=== PATIENT | female | born 1950 | race Caucasian/White ===

== ENCOUNTER 2017-02-07 15:48 | Outpatient (CLI) | payer MEDICARE ==
[2015-04-21 19:13] VITALS: BP 118/46
--- NOTE | 2017-02-07 17:29 | Diagnostic Imaging Report ---
[facility] [address] [facility].[address] [address] Report Submission Date: Feb 07, 2017 4:19:44 PM CDT Patient Study Name: JESUS ALONSO Date: Feb 07, 2017 3:59:07 PM CDT Modality Type: CR Gender: F Description: UPPER EXTREMITY : 48 Institution: [facility] Physician: SANTOS CAIN - ALEXANDER Right index finger 3 views Clinical history: Fingernail abnormalities Very mild osteoarthrosis of the proximal and distal interphalangeal joint without visible fracture, dislocation or other appreciable of abnormalities. No soft tissue calcifications . Impression: Osteoarthrosis Electronically signed on Feb 07, 2017 4:19:44 PM CDT by: Calos KRUGER
== END 2017-02-07 15:50 ==
LOC: RAD 15:48
PROVIDERS: ATTEND Family Medicine
DX: L60.9 Nail disorder, unspecified (principal)
CPT/HCPCS: 73140

== ENCOUNTER 2017-02-17 12:02 | Outpatient (CLI) | payer MEDICARE ==
[2015-04-21 19:13] VITALS: BP 118/46
== END 2017-02-17 12:03 ==
LOC: LABRHC 12:02
PROVIDERS: ATTEND Physician Assistant
DX: R30.0 Dysuria (principal)
CPT/HCPCS: 87086; 87186

== ENCOUNTER 2017-04-06 10:35 | Outpatient (CLI) | payer MEDICARE ==
[2015-04-21 19:13] VITALS: BP 118/46
== END 2017-04-06 10:36 ==
LOC: LAB 10:35
PROVIDERS: ATTEND Family Medicine
DX: R53.83 Other fatigue (principal); E55.9 Vitamin D deficiency, unspecified
CPT/HCPCS: 36415; 82306; 84439; 84443; 84481

== ENCOUNTER 2017-06-21 13:27 | Outpatient (CLI) | payer MEDICARE ==
[2015-04-21 19:13] VITALS: BP 118/46
== END 2017-06-21 13:30 ==
LOC: LABRHC 13:27
PROVIDERS: ATTEND Physician Assistant
DX: R10.30 Lower abdominal pain, unspecified (principal)
CPT/HCPCS: 87086; 87186

== ENCOUNTER 2017-07-19 09:57 | Outpatient (CLI) | payer MEDICARE ==
[2015-04-21 19:13] VITALS: BP 118/46
[2017-07-19] MEDS ORDERED: ALBUTEROL SULFATE 2.5 MG/3 ML AMPUL.NEB NEB ONE (10:21)
[2017-07-19 10:35] LABS: ABG BASE EXCESS -0.4 (-2 - +2); ABG PH 7.38 (7.35-7.45)
[2017-07-19 10:52] LABS: BASOPHILS % 0.9 (0.0-1.5); EOSINOPHILS % 3.9 % (0.0-6.8); MEAN CORPUSCULAR HEMOGLOBIN 31.1 pg (28.0-34.0); MONOCYTES % 6.5 % (0.0-11.0)
[2017-07-19 11:28] LABS: eGFR (African) > 60; eGFR (Non-African) > 60
--- NOTE | 2017-07-19 13:37 | Diagnostic Imaging Report ---
SANTOS CAIN [facility] [address] [facility] [address], [place]. [address] Report Submission Date: Jul 19, 2017 1:17:21 PM CDT Patient Study Name: JESUS ALONSO Date: Jul 19, 2017 10:45:50 AM CDT Modality Type: CR Gender: F Description: CHEST : 48 Institution: [facility] Physician: SANTOS CAIN Examination: PA and lateral chest. History: Evaluate lung villarreal. Findings: PA lateral chest demonstrate a normal cardiac and mediastinal silhouette. Vascular calcifications involving the aortic arch. No focal infiltrate. No effusion. No blunting of the costophrenic margins. Left upper lung/hilar granuloma. Osseous structures are appropriate for age. Impression: No acute pulmonary process. Electronically signed on Jul 19, 2017 1:17:21 PM CDT by: Adrian KRUGER
== END 2017-07-19 10:00 ==
LOC: RT 09:57
PROVIDERS: ATTEND Family Medicine
DX: R06.02 Shortness of breath (principal)
CPT/HCPCS: 36415; 36600; 71020; 80053; 82803; 85025; 94060

== ENCOUNTER 2017-07-22 12:36 | Outpatient (CLI) | payer MEDICARE ==
[2015-04-21 19:13] VITALS: BP 118/46
--- NOTE | 2017-07-28 10:06 | CONSULTATION REPORT ---
REFERRING AND PRIMARY CARE PHYSICIAN: Dr. Eri Quintana CONSULTING PHYSICIAN: Desiree Woody MD CHIEF COMPLAINT: "I have had a cough for years and some shortness of breath." SIGNIFICANT PROBLEM LIST: 1. Hypertension. 2. Hyperlipidemia. 3. Aortic stenosis. 4. B12 deficiency. 5. Colon polyp. 6. Migraine: Treated with Botox injections every 3 months. 7. Fibrocystic breast disease. 8. Fibromyalgia. 9. Iron deficiency. 10. Osteoporosis. 11. Perioral dermatitis. 12. Left kidney cyst. 13. Degenerative joint disease. 14. Sinus surgery, unknown type. 15. UTI on 06/21/17, treated with Bactrim. HISTORY OF PRESENT ILLNESS: This is a 67-year-old female who notes that she has had an intermittent dry cough for years thinking perhaps it could be allergies. She states that she had tried Advair and albuterol in the past and they did help her but has not used any for quite some time. She feels this cough and possible allergies started approximately 20 years ago. She also notes shortness of breath, particularly climbing 1 flight of stairs, but also on flat land. Occasionally, this shortness of breath is associated with chest pain and that she will need to stop and rest and the pain and shortness of breath resolve. The pain can last 1 minute or all day and that belching makes her chest pain feel better. She has not used any inhalers at all recently. She does not have home oxygen. She does not have a home nebulizer. She has never had a sleep study. She does admit to gastroesophageal reflux disease. She has postnasal drip. She has never been on prednisone. She has never taken antibiotics for her lungs. She has never had hemoptysis. She denies PND and edema. She does admit that when she was younger, she had issues with bronchitis. Her appetite is good and she has never had any DVT. Her weight is stable. Tobacco use, she denies ever having used tobacco, however, has had significant exposure to second-hand smoke mainly from her . MEDICATIONS: 1. Paroxetine 40 mg daily. 2. Alendronate sodium 70 mg weekly. 3. Lovastatin 40 mg daily. 4. Atenolol 50 mg daily. 5. Vitamin B12 injection 1000 mcg monthly. 6. Folic acid 1 mg daily. 7. Omeprazole 20 mg daily. 8. Topiramate 50 mg b.i.d. 9. Gabapentin 300 mg q.i.d. 10. Nitroglycerin 0.4 mg sublingual p.r.n. 11. Ergocalciferol 50,000 units p.o. weekly. 12. Botox injections every 12 weeks. Last one was 06/06/17 for migraines. ALLERGIES: 1. Penicillin. 2. Ambien. 3. Keftab. 4. Voltaren. 5. Ciprofloxacin. 6. Levofloxacin. FAMILY HISTORY: Noncontributory to this visit. SOCIAL HISTORY: She is retired. She lives with her . REVIEW OF SYSTEMS: Please see HPI for pertinent review of systems, otherwise, a 14-system review is negative or noncontributory. PHYSICAL EXAMINATION: Vital Signs: Height: 5 feet 4 inches. Weight: 144. BP: 127/71, R: 20, P : 62, oxygen saturation is 99% on room air, T: 96.9. General: This is a well-developed female in no distress talking in full sentences. Oropharynx: Clear. No thrush. Neck: Supple. No lymphadenopathy. Axillary: No lymphadenopathy. Lungs: Good bilateral excursion. Clear to auscultation. No wheezing. Cardiac: Rate and rhythm are regular, S1 and S2. No S3, S4, murmur, rubs, or gallops. Abdomen: Soft and nontender. Positive bowel sounds. Extremities: No cyanosis. No clubbing. No edema. Neurologic: Alert and oriented x3. Grossly nonfocal. Normal gait. IMAGING: All imaging independently reviewed by me personally. 1. Chest x-ray done on 07/19/17: Left upper lung granuloma, otherwise, no infiltrates. 2. Pulmonary function test done on 06/29/17: FVC was 2.76, 96% of predicted; FEV1 was 2.12 L, 93% of predicted; FEV1/FVC was 0.76. There is a bronchodilator response. ABG: On room air was 7.38 pH, pCO2 for 42, pO2 was 93, O2 saturation was 97%. ASSESSMENT AND PLAN: PROBLEM #1: Cough variant asthma. Based on her history of having a nonproductive cough for many years that in the past has been helped with Advair and albuterol and her most recent spirometry is consistent with asthma. Her FEV1 and FVC are normal with a mildly reduced FEV1/FVC; however, there is a definite improvement with bronchodilators. PLAN: 1. Advair Diskus 100/50 one inhalation b.i.d. 2. Albuterol HFA 2 puffs q.4 hours p.r.n. shortness of breath. PROBLEM #2: Allergies. Patient describes most likely environmental allergies that also may be related to her asthma. I have suggested that she purchase over-the- counter non-sedating antihistamines to see if this will help her allergy symptoms. I did provide her with a list of common non-sedating antihistamines. 1. Loratadine: Claritin. 2. Cetirizine: Zyrtec. 3. Fexofenadine: Eneida. PROBLEM #3: Episodes of chest pain. These do not sound cardiac, although they do occur with exertion, but can last all day and that the belching helps. I do note that she has gastroesophageal reflux disease. She also has p.r.n. nitroglycerin. I have asked her if she has had a cardiac workup and she said yes because of her aortic stenosis. PLAN: 1. We will attempt to get echo results from [facility]. 2. Patient to follow up with me in 2 months. cc: Dr. Eri KRUGER
== END 2017-07-22 12:37 ==
LOC: PULMONARY 12:36
PROVIDERS: ATTEND Internal Medicine Pulmonary Disease
DX: R05 Cough (principal); J30.2 Other seasonal allergic rhinitis; R07.89 Other chest pain
CPT/HCPCS: 99214; G0463

== ENCOUNTER 2017-09-20 16:19 | Outpatient (CLI) | payer MEDICARE ==
[2015-04-21 19:13] VITALS: BP 118/46
== END 2017-09-20 17:00 ==
LOC: LABRHC 16:19
PROVIDERS: ATTEND Physician Assistant
DX: R30.0 Dysuria (principal)
CPT/HCPCS: 87086; 87186

== ENCOUNTER 2017-11-04 11:06 | Outpatient (CLI) | payer MEDICARE ==
[2015-04-21 19:13] VITALS: BP 118/46
--- NOTE | 2017-11-10 15:13 | OP Clinic Progress Note ---
PRIMARY CARE PHYSICIAN: Dr. Eri Quintana CHIEF COMPLAINT: "I am returning to discuss my cough and shortness of breath." SIGNIFICANT PROBLEM LIST: 1. Cough variant asthma. 2. Hypertension. 3. Hyperlipidemia. 4. Aortic stenosis: Echo on March 04, 2017: Moderate to severe aortic stenosis, aortic valve area is 0.9 cm. 5. B12 deficiency. 6. Colon polyp. 7. Migraines: Treated with Botox injections every 3 months. 8. Fibrocystic breast disease. 9. Fibromyalgia. 10. Iron deficiency. 11. Osteoporosis. 12. Perioral dermatitis. 13. Left kidney cyst. 14. Degenerative joint disease. 15. Sinus surgery, unknown type. 16. Recurrent urinary tract infection (UTI). Last one diagnosed on 09-20-17. HISTORY OF PRESENT ILLNESS: This is a 67-year-old female who returns for a follow up. She was prescribed Advair and albuterol on her last visit. She states that her shortness of breath and cough are improved. The albuterol helps. She uses that as a rescue. She states she uses her Advair Diskus 100/50 at least once a day and sometimes twice a day. She does also complain of sinus issues for which she takes Mucinex Sinus and she also takes the antihistamine, Xyzal, also known as levocetirizine. She does state that they help her. MEDICATIONS: 1. Paroxetine 25 mg daily. 2. Clonazepam 1 mg t.i.d. 3. Advair Diskus 100/50 one inhalation b.i.d. 4. Alendronate sodium 70 mg weekly. 5. Lovastatin 40 mg daily. 6. Atenolol 50 mg daily. 7. Vitamin B12 injections 1000 mcg monthly. 8. Folic acid 1 mg daily. 9. Albuterol MDI every 4 hours p.r.n. rescue. 10. Topiramate 75 mg b.i.d. 11. Nitroglycerin 0.4 mg sublingual p.r.n. 12. Botox injections every 12 weeks for migraines. ALLERGIES: 1. Penicillin. 2. Ambien. 3. Keftab. 4. Voltaren. 5. Ciprofloxacin. 6. Levofloxacin. PHYSICAL EXAMINATION: VITAL SIGNS: BP: 111/62, P: 66, R: 20, T: 96.9. Room air oxygen saturation is 97%. BMI is 24.2. General: This is a well-developed female in no distress speaking in full sentences. Oropharynx: Clear. No thrush. Neck: Supple. No adenopathy. Lungs: Good bilateral air excursion. Clear to auscultation. No wheezing. Cardiac: Rate and rhythm are regular. No murmur, rubs, or gallops. Abdomen: Soft and nontender. Extremities: No edema, cyanosis, or clubbing. Neurologic: Alert and oriented. Grossly nonfocal. ASSESSMENT AND PLAN: PROBLEM #1: Cough variant asthma. This appears to have been helped with Advair and albuterol. PLAN: 1. Continue Advair 100/50 b.i.d. Patient encouraged to make an effort to take her Advair twice a day. 2. Albuterol HFA 2 puffs every 4 p.r.n. for shortness of breath. PROBLEM #2: Sinus allergies. They appear well controlled with her current use of Sinus Mucinex and Xyzal. PLAN: 1. Continue Sinus Mucinex. 2. Continue Xyzal, also known as levocetirizine. 3. Return to clinic in 3 months. cc: Dr. Eri KRUGER
== END 2017-11-04 11:07 ==
LOC: PULMONARY 11:06
PROVIDERS: ATTEND Internal Medicine Pulmonary Disease
DX: J45.991 Cough variant asthma (principal); J30.9 Allergic rhinitis, unspecified
CPT/HCPCS: 99213; G0463

== ENCOUNTER 2017-11-12 12:19 | Observation (INO) | payer MEDICARE ==
--- NOTE | 2017-11-12 12:40 | ED Physician Documentation ---
General Adult - HISTORIAN Historian: patient - HPI Stated Complaint: dizzy Chief Complaint: General Adult Onset: hours Timing: still present Severity: moderate Further Comments: yes (Pt is a 67 yo female with dizziness and chest pressure this am after taking a shower. Pt has felt slight dizziness from time to time, but episode this am was much worse than usual and pt felt she would pass out and fall. Pt states that she had some sob, but that it was not worse than usual. Pt had some of her meds changed, including Topamax, a few weeks ago. Pt is on beta-nelson for idiopathic tachycardia that is common in her family. Pt did not have nausea.) - ROS CONST: weakness EYES/ENT: none CVS/RESP: chest pain (tightness) GI/: none MS/SKIN/LYMPH: none - PAST HX Past History: other (HTN, HLD, Aortic Stenosis, B12 deficiency, Colon polyp, Migraine (tx with botox), Fibrocystic breast dz, Iron deficiency, Osteoporosis, periorbital dermatitis, L kidney cyst, DJD, sinus surgery) Allergies/Adverse Reactions: Allergies Allergy/AdvReac Type Severity Reaction Status Date / Time ciprofloxacin Allergy Joint Pain Verified 11/12/17 12:50 diclofenac Allergy Verified 11/12/17 12:50 levofloxacin [From Levaquin] Allergy Verified 11/12/17 12:50 Penicillins Allergy Verified 11/12/17 12:50 zolpidem tartrate Allergy Verified 11/12/17 12:50 [From Ambien] Home Medications: Ambulatory Orders Medication Instructions Recorded Clonazepam 1 mg PO TID u2 09/20/17 Paroxetine Er 25 mg PO BID 30 Days #60 09/20/17 Topiramate 50 mg PO TID 30 Days #90 09/20/17 Fluticasone/Salmeterol [Advair 1 inh INH BID 11/12/17 100-50 Diskus] - SOCIAL HX Smoking History: non-smoker - FAMILY HX Family History: No - VITAL SIGNS Vital Signs: Vital Signs Temp Pulse Resp BP Pulse Ox 118/46 04/21/15 19:10 - REVIEWED ASSESSMENTS Nursing Assessment Reviewed: Yes Vitals Reviewed: Yes Progress - Progress Progress: 1 L NS IVF no change, pt still feels weakness/malaise Admit to ER doctor, r/o [place], obs - EKG/XRAY/CT EKG: NSR (HR=65; RAD.) XRAY: chest (no acute process) General Adult Physical Exam - PHYSICAL EXAM GENERAL APPEARANCE: mild distress EENT: pharynx normal NECK: normal inspection, supple RESPIRATORY: no resp distress, chest non-tender, breath sounds normal CVS: reg rate & rhythm, heart sounds normal ABDOMEN: soft, no organomegaly, normal bowel sounds BACK: normal inspection, no CVA tenderness SKIN: warm/dry, normal color EXTREMITIES: non-tender, normal range of motion, no evidence of injury NEURO: oriented X3, motor nml, sensation nml Discharge Clincal Impression: chest pain, dizziness Referrals: Eri Quintana MD [Primary Care Provider] - Condition: Stable Disposition: 09 ADMITTED INPATIENT Decision to Admit: [id number] Decision Time: 15:01
[2017-11-12] MEDS ORDERED: 0.9 % SODIUM CHLORIDE 500 ML IV ONE ×3 (12:50→13:50)
[2017-11-12 13:17] LABS: EOSINOPHILS % 6.7 % (0.0-6.8); MEAN CORPUSCULAR HEMOGLOBIN 30.8 pg (28.0-34.0); MEAN CORPUSCULAR VOLUME 88.8 fl (80.0-100.0); MONOCYTES % 6.6 % (0.0-11.0); NEUTROPHILS # 2.3 # k/uL (1.4-7.7)
[2017-11-12 13:23] LABS: eGFR (African) > 60; eGFR (Non-African) > 60
[2017-11-12] MEDS: SIMVASTATIN 20 MG TABLET PO SCH ×2 (15:53→20:14)
[2017-11-12] MEDS ORDERED: 0.9 % SODIUM CHLORIDE 1,000 ML IV ONE (16:01)
[2017-11-12] MEDS: 0.9 % SODIUM CHLORIDE 1,000 ML IV SCH (16:03)
--- NOTE | 2017-11-12 16:15 | Diagnostic Imaging Report ---
HANY GASCA [facility] [address] [facility] [address] [place] [address]. [address] Report Submission Date: Nov 12, 2017 1:52:54 PM MECHANICAL ENGINEERING TECHNOLOGIST Patient Study Name: JESUS ALONSO Date: Nov 12, 2017 12:56:00 PM MECHANICAL ENGINEERING TECHNOLOGIST Modality Type: CR Gender: F Description: CHEST : 48 Institution: [facility] Physician: HANY GASCA Examination: Portable chest History: Chest discomfort Comparison exam: 19 July 2017 Findings: Single view of the chest demonstrates a normal cardiac and mediastinal silhouette. Vascular calcifications involving the aortic arch. Lung villarreal without focal infiltrate. No blunting of the costophrenic margins. Stable left lung granuloma. Osseous structures are appropriate for age. Impression: No acute pulmonary process. Electronically signed on Nov 12, 2017 1:52:54 PM MECHANICAL ENGINEERING TECHNOLOGIST by: Adrian KRUGER
[2017-11-12] MEDS ORDERED: TOPIRAMATE 50 MG TABLET PO ONE ×2 (18:07→22:46)
[2017-11-12] MEDS ORDERED: FLUTICASONE/SALMETEROL 250-50 INHALER IH ONE (18:07)
[2017-11-12] MEDS ORDERED: SIMVASTATIN 20 MG TABLET ONE (18:08)
[2017-11-12] MEDS ORDERED: clonazePAM 0.5 MG TABLET PO ONE (18:08)
[2017-11-12] MEDS ORDERED: IBUPROFEN 400 MG TABLET PO ONE (18:09)
[2017-11-12] MEDS: IBUPROFEN 400 MG TABLET PO PRN (18:11)
[2017-11-12] MEDS: TOPIRAMATE 50 MG TABLET PO SCH (18:11)
[2017-11-12] MEDS: clonazePAM 1 MG TABLET PO SCH (18:11)
[2017-11-12 19:39] VITALS: BMI 24.7
[2017-11-12] MEDS: FLUTICASONE/SALMETEROL 250-50 INHALER IH SCH (20:14)
[2017-11-12] MEDS ORDERED: FOLIC ACID 1 MG TABLET PO ONE (22:46)
[2017-11-12] MEDS ORDERED: ATENOLOL 25 MG TABLET PO ONE (22:46)
[2017-11-12] MEDS ORDERED: PARoxetine HCL 10 MG TABLET PO ONE (22:46)
[2017-11-13] MEDS ORDERED: 0.9 % SODIUM CHLORIDE 1,000 ML IV ONE (00:01)
[2017-11-13] MEDS ORDERED: IBUPROFEN 400 MG TABLET PO ONE ×2 (00:11→08:11)
[2017-11-13] MEDS: IBUPROFEN 400 MG TABLET PO PRN ×2 (00:16→08:17)
[2017-11-13] MEDS: 0.9 % SODIUM CHLORIDE 1,000 ML IV SCH (00:17)
[2017-11-13] MEDS: clonazePAM 1 MG TABLET PO SCH (08:34)
[2017-11-13] MEDS: TOPIRAMATE 50 MG TABLET PO SCH (08:34)
[2017-11-13] MEDS: FLUTICASONE/SALMETEROL 250-50 INHALER IH SCH (08:34)
[2017-11-13] MEDS ORDERED: clonazePAM 0.5 MG TABLET PO ONE (08:34)
--- NOTE | 2017-11-13 08:57 | Discharge Summary ---
Discharge Summary - Discharge Sumary History of Present Illness: Pt is a 67 yo female who c/o dizziness and chest pressure yesterday in the ER and was admitted overnight to r/o [place]. Pt had normal cardiac enzymes x 3 and EKG 's with no significant changes from previous. Pt was given 1 L NS in ER and NS @ 100 cc/hr overnight. Pt c/o malaise this am and a slight headache. Pt c/ o headache overnight and was given ibuprofen. Pt has hx frequent migraines and has had botox tx and takes Topamax for migraine prophylaxis. She had the dose of this increased several months ago. Pt c/o feeling tired all the time and sleeping during the daytime. Pt states that she has never had a sleep study, though one of her providers proposed her getting one. Pt will be d/c'd to home on her usual meds and should f/u with pcp. She should consider a sleep study and f/u about this with pcp. Condition at Discharge: Stable Home Medications: Ambulatory Orders Medication Instructions Recorded Clonazepam 1 mg PO TID u2 09/20/17 Paroxetine Er 25 mg PO BID 30 Days #60 09/20/17 Topiramate 50 mg PO TID 30 Days #90 09/20/17 Fluticasone/Salmeterol [Advair 1 inh INH BID 11/12/17 100-50 Diskus] Consultations this Visit: None Procedures this Visit: None Allergies/Adverse Reactions: Allergies Allergy/AdvReac Type Severity Reaction Status Date / Time ciprofloxacin Allergy Joint Pain Verified 11/12/17 12:50 diclofenac Allergy Verified 11/12/17 12:50 levofloxacin [From Levaquin] Allergy Verified 11/12/17 12:50 Penicillins Allergy Verified 11/12/17 12:50 zolpidem tartrate Allergy Verified 11/12/17 12:50 [From Ambien]
[2017-11-13] MEDS ORDERED: PARoxetine HCL 10 MG TABLET PO SCH (09:00)
[2017-11-13] MEDS ORDERED: FOLIC ACID 1 MG TABLET PO SCH (09:00)
[2017-11-13] MEDS ORDERED: ATENOLOL 25 MG TABLET PO SCH (09:00)
[2017-11-13 10:01] VITALS: BP 120/68
== END 2017-11-13 09:50 | disposition home or self-care (01) ==
LOC: ED 12:19 → SOUTH 15:20
PROVIDERS: ADMIT Emergency Medicine; ATTEND Emergency Medicine
DX: R07.9 Chest pain, unspecified (principal); R42 Dizziness and giddiness
CPT/HCPCS: 71010; 80053; 82550; 82553; 83880; 84484; 85025; 85379; 93005; 96360; 96361; 99283; 99284; G0378; J3490; J7030; J7060; 99217; S1016

== ENCOUNTER 2018-03-24 14:19 | Outpatient (CLI) | payer MEDICARE ==
--- NOTE | 2018-04-04 11:52 | OP Clinic Progress Note ---
PRIMARY CARE PROVIDER: Dr. Eri Quintana CHIEF COMPLAINT: "I am here to talk about my asthma."' SIGNIFICANT PROBLEM LIST: 1. Cough variant asthma. 2. Hypertension. 3. Aortic stenosis: Echo on March 07, 2018, showed moderate to severe aortic stenosis, aortic valve area 0.7 cm squared. 4. Hyperlipidemia. 5. Vitamin B12 deficiency. 6. Colonic polyp. 7. Migraines: Treated with Botox injections every 3 months. 8. Fibrocystic breast disease. 9. Fibromyalgia. 10. Iron deficiency. 11. Osteoporosis. 12. Perioral dermatitis. 13. Left kidney cyst. 14. Degenerative joint disease. 15. Recurrent urinary tract infections. 16. Sinus congestion/postnasal drip. 17. Sinus surgery, unknown type. HISTORY OF PRESENT ILLNESS: This is a 67-year-old female who returns for follow up with her daughter. Unfortunately, at the beginning of the month, her unexpectedly. It sounds like he had a cardiac arrest at home. She states her breathing is acceptable. She is using her Advair twice a day and that has definitely helped her. She is also continuing to use her antihistamine of Xyzal. She is also using her Sinus Mucinex and the albuterol inhaler 1 to 2 times a day. She does complain of shortness of breath while she takes a shower. She did see Cardiology at [facility] on March 07, 2018. I have reviewed the notes and her echo report from March 07, 2018, shows moderate LVH, an ejection fraction of 72%, class 1 diastolic dysfunction, RVSP of 41 mmHg, severe aortic stenosis, valve area 0.7 cm squared, and moderate regurgitation. ALLERGIES: 1. Penicillin. 2. Ambien. 3. Keftab. 4. Voltaren. 5. Ciprofloxacin. 6. Levofloxacin. MEDICATIONS: 1. Advair 100/50 one inhalation b.i.d. 2. Levocetirizine at bedtime. 3. Albuterol 2 puffs p.r.n. shortness of breath. 4. Sinus Mucinex 2 tablets p.r.n. 5. Paroxetine 50 mg daily. 6. Clonazepam 1 mg at bedtime. 7. Lovastatin 40 mg daily. 8. Atenolol 50 mg daily. 9. Vitamin B12 injection, 1000 mcg monthly. 10. Folic acid 100 mg daily. 11. Topiramate 75 mg b.i.d. 12. Nitroglycerin 0.4 mg sublingual p.r.n. chest pain. 13. Calcium with D3 daily. 14. Ibuprofen p.r.n. PHYSICAL EXAMINATION: VITAL SIGNS: BP: 143/75, P: 67, R: 18, T: 98.3, room air saturation is 95%. Height: 5 feet 4 inches. Weight: 144 pounds. BMI is 24.7. GENERAL: This is a well-developed, well-nourished female in no acute distress speaking in full sentences. HEENT: Pupils are equal and reactive to light. Oropharynx is clear. No thrush. No erythema. NECK: Supple. No lymphadenopathy. LUNGS: Good bilateral air excursion. No wheezes, crackles, or rhonchi. CARDIAC: Rate and rhythm are regular. No murmur, rubs, or gallops. ABDOMEN: Soft and nontender. EXTREMITIES: No cyanosis, clubbing, or edema. NEUROLOGIC: Alert and oriented x3. Grossly nonfocal. IMAGING: All imaging independently reviewed by me personally. 1. Echo on March 07, 2018. Moderate LVH. Ejection fraction of 72%. Class 1 diastolic dysfunction. RVSP of 41 mmHg. Severe . Valve area is 0.7 cm squared. Moderate aortic regurgitation. ASSESSMENT AND PLAN: PROBLEM #1: Cough variant asthma. Patient is doing well at taking her Advair twice a day. PLAN: 1. Continue Advair 100/50 b.i.d. 2. Albuterol HFA 2 puffs every 3 to 4 hours p.r.n. for shortness of breath. 3. Patient instructed to keep the door to her bathroom open to avoid shortness of breath while she is taking a shower. PROBLEM #2: Sinus congestion/sinus allergies. PLAN: 1. Continue Sinus Mucinex. 2. Initiate fluticasone nasal spray, 2 sprays each nostril daily. 3. Continue a non-sedating antihistamine. 4. Return to clinic in 3 months. cc: Dr. Eri Quintana [facility] HOSPITALHeriberto
== END 2018-03-24 14:20 ==
LOC: PULMONARY 14:19
PROVIDERS: ATTEND Internal Medicine Pulmonary Disease
DX: J45.991 Cough variant asthma (principal); R09.81 Nasal congestion; J30.9 Allergic rhinitis, unspecified
CPT/HCPCS: 99214; G0463

== ENCOUNTER 2018-03-30 16:27 | Outpatient (CLI) | payer MEDICARE | END 2018-03-30 16:28 | LOC: LABRHC 16:27 | PROVIDERS: ATTEND Physician Assistant | DX: R30.0 Dysuria (principal) | CPT/HCPCS: 87086 ==

== ENCOUNTER 2018-06-06 15:54 | Outpatient (CLI) | payer MEDICARE | END 2018-06-06 15:55 | LOC: LABRHC 15:54 | PROVIDERS: ATTEND Physician Assistant | DX: R30.0 Dysuria (principal) | CPT/HCPCS: 87086 ==

== ENCOUNTER 2018-06-23 12:23 | Outpatient (CLI) | payer MEDICARE ==
--- NOTE | 2018-06-30 18:49 | OP Clinic Progress Note ---
PRIMARY CARE PROVIDER: Dr. Eri Quintana CHIEF COMPLAINT: "My throat is bothering me. SIGNIFICANT PROBLEM LIST: 1. Cough-variant asthma. 2. Hypertension. 3. Aortic stenosis: Echo on March 07, 2018, shows moderate to severe aortic stenosis, aortic valve area is 0.7 cm squared. 4. Hyperlipidemia. 5. Vitamin B12 deficiency. 6. Colonic polyp. 7. Migraines: Treated with Botox injections every 3 months. 8. Fibrocystic breast disease. 9. Fibromyalgia. 10. Iron deficiency. 11. Osteoporosis. 12. Perioral dermatitis. 13. Left kidney cyst. 14. Degenerative joint disease. 15. Recurrent urinary tract infection. 16. Sinus congestion/postnasal drip. 17. Sinus surgery, unknown type. HISTORY OF PRESENT ILLNESS: This is a 67-year-old female who returns to the Pulmonary Clinic for follow up of her asthma. She states that she is doing well from an asthma standpoint. She is using her Advair 100/50 one inhalation b.i.d. She is also continuing to use nasal fluticasone. She does complain of a sore throat but denies any fever, chills, or sweats. She thinks that maybe she might not be rinsing out her mouth as well after she uses the Advair. She has also had several UTIs over the last several months that have been treated both times with Bactrim. She also states that she is anxious. She will be seeing her curriculum specialist soon and she is concerned he might recommend surgery for her aortic valve. ALLERGIES: 1. Penicillin. 2. Ambien. 3. Keftab. 4. Voltaren. 5. Ciprofloxacin. 6. Levofloxacin. MEDICATIONS: 1. Advair 100/50 mcg 1 inhalation b.i.d. 2. Levocetirizine at bedtime. 3. Albuterol 2 puffs p.r.n. shortness of breath. 4. Sinus Mucinex 2 tablets p.r.n. 5. Paroxetine 50 mg daily. 6. Clonazepam 1 mg at bedtime. 7. Lovastatin 40 mg daily. 8. Atenolol 50 mg daily. 9. Vitamin B12 injection 1000 mcg monthly. 10. Folic acid 100 mg daily. 11. Topiramate 75 mg b.i.d. 12. Calcium with D3 daily. 13. Ibuprofen p.r.n. PHYSICAL EXAMINATION: VITAL SIGNS: BP: 124/68, P: 66, R: 20, T: 98.0, room air oxygen saturation was 98%. Weight: 146 pounds (Increase of 2 pounds since last visit on 03-24-18) . GENERAL: This is a well-developed, well-nourished female in no acute distress speaking in full sentences. HEENT: Pupils are equal and reactive to light. Perioral dermatitis is present. Oropharynx has no thrush. Clear. No erythema. NECK: Supple. No lymphadenopathy. LUNGS: Good bilateral air excursion. Clear breath sounds bilaterally. No wheezes, rhonchi, or rales. CARDIAC: Rate and rhythm are regular. She has a 3/6 systolic murmur heard at the base with radiation to the carotids bilaterally. ABDOMEN: Soft and nontender. EXTREMITIES: No edema, cyanosis, or clubbing. NEUROLOGIC: Alert and oriented x3. Grossly nonfocal neurologic exam. ASSESSMENT AND PLAN: PROBLEM: #1: Cough-variant asthma. Patient is continuing to do well using her Advair b.i.d. PLAN: 1. Continue Advair 100/50 mcg 1 inhalation b.i.d. 2. Continue albuterol HFA 2 puffs every 3 to 4 hours p.r.n. shortness of breath. PROBLEM: #2 Sinus congestion and sinus allergy. These are overall stable at present. PLAN: 1. Continue Sinus Mucinex. 2. Continue fluticasone nasal spray 50 mcg 2 sprays each nostril daily. 3. Continue a non-sedating antihistamine. 4. Return to clinic in 1 year or sooner if needed. cc: Dr. Eri KRUGER
== END 2018-06-23 12:24 ==
LOC: PULMONARY 12:23
PROVIDERS: ATTEND Internal Medicine Pulmonary Disease
DX: J45.991 Cough variant asthma (principal); R09.81 Nasal congestion; J30.9 Allergic rhinitis, unspecified
CPT/HCPCS: 99214; G0463

== ENCOUNTER 2018-07-17 16:26 | Outpatient (CLI) | payer MEDICARE | END 2018-07-17 16:28 | LOC: LABRHC 16:26 | PROVIDERS: ATTEND Family Medicine | DX: R30.0 Dysuria (principal) | CPT/HCPCS: 87086 ==

== ENCOUNTER 2019-04-11 13:36 | Outpatient (CLI) | payer MEDICARE | END 2019-04-11 13:38 | LOC: LABRHC 13:36 | PROVIDERS: ATTEND Family Medicine | DX: R30.0 Dysuria (principal) | CPT/HCPCS: 87086 ==

== ENCOUNTER 2019-07-15 13:02 | Emergency (ER) | payer MEDICARE ==
--- NOTE | 2019-07-15 13:18 | ED Physician Documentation ---
Chest Pain - HISTORIAN Historian: patient - HPI Stated Complaint: chest pain Chief Complaint: Chest Pain Additional Information: Patient presents to ED with a 2-3 hour history of sternal chest pain radiating to bilateral jaws. She reports the pain as a pressure, 6/10. Patient was a yazidi when the pain started. After eating lunch at home with no improvement she decided to come to the ER. Patient states when the pain first started she had several episodes of heart palpitations. While in the ER she initially said she was symptoms free, however, changed her story several minutes later she still had chest heaviness. Patient chest discomfort is reproducible with chest wall compression at the sternum. She has a history of aortic valve regurg and is currently under evaluation for aortic valve replacement. Onset: hours (3) Timing: sudden onset Duration: waxing, waning Last known Well Date: 07/15/19 Last Known Well Time: 11:00 Context: rest Severity: moderate Quality: pressure, tightness Chest Pain Radiation: jaw, neck Chest Pain Signs/Symptoms: denies: nausea, vomiting, diaphoresis, dizziness Worsened By: other (chest wall compression) Relieved By: rest - ROS CONST: denies: fever MS/LYMPH: denies: ankle swelling GI/: denies: vomiting, nausea, diarrhea EYES/ENT: none SKIN/ENDO: denies: recent weight change NEURO/PSYCH: headache - PAST HX TN risk factors: other (aortic valve regurg) DVT/PE Risk Factors: none TAD/AAA risk factors: none Neuro deficit: none GI disease: none Lung disease: none Surgeries/Procedures: none Allergies/Adverse Reactions: Allergies Allergy/AdvReac Type Severity Reaction Status Date / Time ciprofloxacin Allergy Joint Pain Verified 07/15/19 13:20 diclofenac Allergy Verified 07/15/19 13:20 levofloxacin [From Levaquin] Allergy Verified 07/15/19 13:20 Penicillins Allergy Verified 07/15/19 13:20 zolpidem tartrate Allergy Verified 07/15/19 13:20 [From Ambien] Home Medications: Ambulatory Orders Medication Instructions Recorded Clonazepam 1 mg PO TID u2 09/20/17 Paroxetine Er 25 mg PO BID 30 Days #60 09/20/17 Fluticasone/Salmeterol [Advair 1 inh INH BID 11/12/17 100-50 Diskus] - SOCIAL HX Smoking History: non-smoker Alcohol Use: none Drug Use: none - FAMILY HX Family HX: none - VITAL SIGNS Vital Signs: Vital Signs Temp Pulse Resp BP Pulse Ox 120/68 11/13/17 08:51 - REVIEWED ASSESSMENTS Nursing Assessment Reviewed: Yes Vitals Reviewed: Yes ED Results Lab/Radiology - Radiology Radiology Impressions: Report Submission Date: Jul 15, 2019 1:48:19 PM CDT Patient Study Name: JESUS ALONSO Date: Jul 15, 2019 1:24:49 PM CDT Modality Type: DX Gender: F Description: CHEST 2VIEW : 48 Institution: [facility] Physician: RODOLFO BUCKNER Exam: Chest two views. History: Chest pain. The examination is compared to study dated November 12, 2017. Lung villarreal are well aerated. Calcified granuloma in the left midlung field is again noted. Heart and mediastinal contour are stable with atherosclerotic plaques seen in the aorta. No bony abnormalities are identified. Impression: No earnestine consolidation or effusion. Electronically signed on Jul 15, 2019 1:48:19 PM CDT by: Addison Whitten Chest Pain Physical Exam - EXAM General Appearance: no acute distress, alert EENT: BOOM Neck: nml inspection. No: lymphadenopathy Respiratory: no resp. distress, nml breath sounds CVS: reg. rate & rhythm, murmur (systolic 3/5) Abdomen: soft, normal bowel sounds, non-tender Skin: warm/dry Extremities: non-tender, no edema Neuro: oriented X3, CN's nml as tested, motor nml, sensation nml, mood/affect nml Discharge Clincal Impression: Non-cardiac chest pain Referrals: Eri Quintana MD [Primary Care Provider] - 2 Days Additional Instructions: 1. Drink plenty of fluids to maintain proper hydration 2. Follow up with [facility] on as previously scheduled 3. Follow up with PCP within 1 week 4. Return to ER for new or worsening symptoms Condition: Stable Disposition: 01 HOME, SELF-CARE Decision to Admit: NO Date of Decison to Admit: 07/15/19 Decision Time: 14:39
[2019-07-15 13:51] LABS: BASOPHILS % 0.3 % (0.0-1.5); NEUTROPHILS # 2.8 # k/uL (1.4-7.7)
[2019-07-15 14:00] LABS: eGFR (Non-African) > 60
--- NOTE | 2019-07-15 14:12 | Diagnostic Imaging Report ---
RODOLFO BUCKNER [facility] [id number] [facility].[address] [id number] Report Submission Date: Jul 15, 2019 1:48:19 PM CDT Patient Study Name: JESUS ALONSO Date: Jul 15, 2019 1:24:49 PM CDT Modality Type: DX Gender: F Description: CHEST 2VIEW : 48 Institution: [facility] Physician: RODOLFO BUCKNER Exam: Chest two views. History: Chest pain. The examination is compared to study dated November 12, 2017. Lung villarreal are well aerated. Calcified granuloma in the left midlung field is again noted. Heart and mediastinal contour are stable with atherosclerotic plaques seen in the aorta. No bony abnormalities are identified. Impression: No earnestine consolidation or effusion. Electronically signed on Jul 15, 2019 1:48:19 PM CDT by: Addison KRUGER
[2019-07-15] MEDS ORDERED: methylPREDNISolone SOD SUCC 125 MG/2 ML VIAL IVP ONE (14:32)
[2019-07-15 14:48] VITALS: BP 135/60
== END 2019-07-15 14:48 | disposition home or self-care (01) ==
LOC: ED 13:02
DX: R07.9 Chest pain, unspecified (principal)
CPT/HCPCS: 71046; 80053; 83880; 84484; 85025; 96372; 99282; 99283; J2930; S1016